=== PATIENT | female | born 1990 | race Caucasian/White ===

== ENCOUNTER → 2020-04-07 14:20 | Outpatient (BNVA) | payer MEDICAID, SELFPAY | PROVIDERS: Visit Provider Nurse Practitioner Women's Health | DX: Z01.419 Encounter for gynecological examination (general) (routine) without abnormal findings (principal); N76.0 Acute vaginitis; Z01.411 Encounter for gynecological examination (general) (routine) with abnormal findings; N72 Inflammatory disease of cervix uteri | CPT/HCPCS: 88175 ==

== ENCOUNTER 2020-06-18 10:04 | Emergency (ER) | payer MEDICAID, SELFPAY ==
[2020-06-18 10:26] VITALS: BP 133/86; PULSE 98; RESP 18; TEMP 36.9; O2SAT 100; BMI 33.5
--- NOTE | 2020-06-18 10:27 | ED_ITS ---
HPI - Extremity Problem General: Chief complaint: Extremity Problem,Nontraumatic Stated complaint: left side swollen from waist down Time Seen by Provider: 06/18/20 10:27 Source: patient Mode of arrival: wheelchair Limitations: no limitations History of Present Illness: HPI Narrative: Patient is a very nice 29-year-old female who presents to ED today with complaints of pain and swelling throughout her left lower extremity. Patient tells me a few days ago she began having pain in her left hip but noticed yesterday swelling from her groin distally. She tells me she cannot ambulate on the extremity secondary to the swelling and pain. She has not noticed any color or temperature changes to the extremity. No periods of prolonged inactivity. No recent surgeries. She was started on oral contraception 3 months ago. She has had no recent injury or trauma to the leg. MD Complaint: extremity pain and extremity swelling Location: left and lower extremity Relieving factors: nothing Exacerbating factors: walking Associated symptoms: Reports no associated symptoms; Deny chest pain, fever(s) or rash Review of Systems Const: Denies: fever(s), chills, body aches, fatigue or malaise Card: Denies: chest pain, palpitations, irregular heart rhythm, edema, lightheadedness, syncope, pre-syncope, dyspnea on exertion or orthopnea Resp: Denies: dyspnea, productive cough, non-productive cough, hemoptysis or chest congestion GI: Denies: nausea or vomiting Musc: Reports: extremity pain and extremity swelling; Denies: neck pain, back pain, joint pain, joint swelling, joint redness or joint warmth Skin/Breast: Denies: rash Neuro: Denies: headache(s), numbness in extremities, weakness in extremities, sensory changes, lack of coordination or dizziness [facility] ED PFSH: Medical History (Updated 06/18/20 @ 13:12 by IAIN Gordon) No pertinent past medical history Denies diabetes, asthma, hypertension, seizures, DVT/PE PMD: none-list provided on 06/08/2020 Surgical History Finger amputation, 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 H/O lumpectomy (2005) right breast--- fibroadenoma Family History Grandfather Diabetes Maternal grandfather Brother Hypertension Unknown Hyperlipidemia Maternal side Grandmother Family history of thyroid problem Paternal grandmother Denies family history of Colon cancer Ovarian cancer Heart disease Breast cancer Uterine cancer Stroke Social History (Updated 06/08/20 @ 12:36 by Brooke Smith MD) Additional social history: - Physical Exam Const: COMMON NORMALS: no acute distress, average body habitus, patient oriented x3, no limitations, healthy appearing, alert and well nourished Resp: COMMON NORMALS: normal respiratory effort and clear to auscultation bilaterally AUSCULTATION: clear to auscultation bilaterally Cardio: COMMON NORMALS: regular rate and regular rhythm RATE: regular rate RHYTHM: regular rhythm Extremity: GENERAL: Yes normal exam except as noted OTHER: pt has signif icant swelling from her L groin affecting her entire L LE; extremity is equal color and temp of R LE Neuro: COMMON NORMALS: patient oriented x3, moves all extremities, no focal motor deficits and no sensory deficits noted SENSORIUM/ORIENTATION: Yes alert GAIT: Yes Unable to assess gait Skin: COMMON NORMALS: no rashes or lesions noted GENERAL SKIN EXAM: no rashes or lesions noted Course Consultations: Consultation #1: Dr. Bird-recommends speaking with interventional cardiology for their input Consultation #2: Dr. Mcdowell-recommends 1 mg/kg Lovenox and placing pt on either Xarelo/Eliquis and he will follow up in office; recommends cessation of control pills; did not recommend any intervention or hospital admission at this time Vital Signs: Vital signs: Vital Signs Temperature 98.5 F 06/18/20 10:26 Pulse Rate 80 06/18/20 13:27 Respiratory Rate 14 06/18/20 13:27 Blood Pressure 129/79 06/18/20 13:27 Pulse Oximetry 97 06/18/20 13:27 MDM - Extremity (Nontraumatic) MDM Narrative: Medical decision making narrative: I have spoken interventional cardiology/vascular who recommended giving patient a dose of Lovenox and placing them on either Xarelto or Eliquis at this time. They did not recommend any further management or intervention at this time. Patient was given very strict precautions to return to the emergency department for the onset of chest pain, shortness of breath, difficulty breathing, exercise intolerance. Patient verbalizes understanding. Case management was able to get patient an appointment next week for follow-up. Lab Data: Labs: Lab Results 06/18/20 06/18/20 06/18/20 Range/Units 11:08 11:08 11:08 WBC 12.7 H (4.0-10.0) 10^3/ uL RBC 4.68 (4.1-5.3) 10^6/u L Hgb 13.4 (11.5-15.3) g/dL Hct 40.9 (37.0-47.0) % MCV 87.4 (81-99) fL MCH 28.6 (28.0-34.0) pg MCHC 32.8 (30.0-36.0) g/dL RDW 12.0 L (12.1-15.1) % Plt Count 313 (130-400) 10^3/c mm MPV 9.8 (7.4-10.4) fL Neut % (Auto) 76.9 % Lymph % (Auto) 16.2 % [place] % (Auto) 5.6 % Eos % (Auto) 0.5 % Baso % (Auto) 0.4 % Neut # (Auto) 9.75 H (1.8-7.7) 10^3/u L Lymph # (Auto) 2.1 (0.8-4.8) 10^3/u L [place] # (Auto) 0.7 (0.2-0.9) 10^3/u L Eos # (Auto) 0.1 (0.0-0.8) 10^3/u L Baso # (Auto) 0.1 (0.0-0.1) 10^3/u L Nucleated RBC % (a uto) 0 % Nucleated RBCs # 0.0 /100WBC PT 13.10 (12.1-14.9) SECO NDS INR 0.97 (0.8-1.2) APTT 28.7 (23.9-36.7) SECO NDS Sodium 134 L (136-145) mmol/L Potassium 4.0 (3.5-5.1) mmol/L Chloride 103 (98-107) mmol/L Carbon Dioxide 21 L (22-29) mmol/L Anion Gap 14.0 (5-19) BUN 12 (6-20) mg/dL Creatinine 0.9 (0.5-0.9) mg/dL GFR Calculation 74.0 L (90-130) mL/min Glucose 108 (65-115) mg/dL Calculated Osmolal ity 278 L (285-295) mOsm/k g Calcium 9.8 (8.5-10.5) mg/dL Total Bilirubin 0.2 (0.15-1.2) mg/dL AST 17 (0-32) U/L ALT 12 (0-33) U/L Alkaline Phosphata se 72 (35-105) IU/L Total Protein 8.0 (6.6-8.7) g/dL Albumin 4.4 (3.5-5.2) g/dL Globulin 3.6 (1.3-4.6) g/dL HCG, Qual (Negative) 06/18/20 Range/Units 11:08 WBC (4.0-10.0) 10^3/ uL RBC (4.1-5.3) 10^6/u L Hgb (11.5-15.3) g/dL Hct (37.0-47.0) % MCV (81-99) fL MCH (28.0-34.0) pg MCHC (30.0-36.0) g/dL RDW (12.1-15.1) % Plt Count (130-400) 10^3/c mm MPV (7.4-10.4) fL Neut % (Auto) % Lymph % (Auto) % [place] % (Auto) % Eos % (Auto) % Baso % (Auto) % Neut # (Auto) (1.8-7.7) 10^3/u L Lymph # (Auto) (0.8-4.8) 10^3/u L [place] # (Auto) (0.2-0.9) 10^3/u L Eos # (Auto) (0.0-0.8) 10^3/u L Baso # (Auto) (0.0-0.1) 10^3/u L Nucleated RBC % (a uto) % Nucleated RBCs # /100WBC PT (12.1-14.9) SECO NDS INR (0.8-1.2) APTT (23.9-36.7) SECO NDS Sodium (136-145) mmol/L Potassium (3.5-5.1) mmol/L Chloride (98-107) mmol/L Carbon Dioxide (22-29) mmol/L Anion Gap (5-19) BUN (6-20) mg/dL Creatinine (0.5-0.9) mg/dL GFR Calculation (90-130) mL/min Glucose (65-115) mg/dL Calculated Osmolal ity (285-295) mOsm/k g Calcium (8.5-10.5) mg/dL Total Bilirubin (0.15-1.2) mg/dL AST (0-32) U/L ALT (0-33) U/L Alkaline Phosphata se (35-105) IU/L Total Protein (6.6-8.7) g/dL Albumin (3.5-5.2) g/dL Globulin (1.3-4.6) g/dL HCG, Qual Negative (Negative) Imaging Data^: US L LE venous: Radiologist's impression: DVT noted left CFV through left FV through left popl iteal through left peroneal. This appears to be movable. Discharge Plan Discharge Patient Disposition: Home Clinical Impression: Acute deep vein thrombosis (DVT) of left lower extremity Qualifiers: Affected thrombotic vein of extremity: femoral Qualified Code(s): I82.412 - Acute embolism and thrombosis of left femoral vein Condition: Stable Prescriptions: New Xarelto DVT-PE Treat 30d Start 15 mg (42)- 20 mg (9) tablets,dose pack See Rx Instructions .ROUTE .COMPLEX Qty: 51 RF: 0 hydrocodone-acetaminophen 5-325 mg tablet 1 tab PO Q6H PRN (Reason: pain) Qty: 14 RF: 0 Discontinued levonorgestrel-ethinyl estrad [Levora-28] 0.15-0.03 mg tablet 1 tab PO DAILY Qty: 84 RF: 1 Discharge Orders: Discharge Order (Routine); Ordered 06/18/20 Ordered By: Carolyn Clayton Referrals: Juvenal Mcdowell MD [Physician] - Patient Instructions: Deep Venous Thrombosis (ED) Activity Restrictions/Additional Instructions: As discussed please stop taking your oral contraception pills. You need to use alternative forms of control to prevent . As discussed case management should be contacting you to set you up with your appointment with Dr. Mcdowell for follow-up of your left leg DVT. You need to return to the emergency department immediately for chest pain, shortness of breath, difficulty breathing, exercise intolerance, passing out episodes, coughing up blood, or any other concerns you may have. You need to fill your prescriptions immediately and start them. Discharge Date/Time: 06/18/20 13:28 Coding Level of Care Code ED Funeral Home Director for Chg Fwd Exam Detailed
--- NOTE | 2020-06-18 10:42 | USCV_ITS ---
Gely Frost Age: 29 Gender: F : 1990 Exam Date: 06/18/2020 10:40 Ordering Phys: Carolyn Clayton Technologist: Lady Cole [place] [facility] [place]: SUDDEN ONSET PAIN AND SWELLING LT LEG HISTORY: Sudden onset pain lt leg. Can not weight bear PROCEDURES: Venous duplex imaging was performed in only the left lower extremity. The following venous structures were evaluated: common femoral vein, profunda vein, proximal portion of the greater saphenous vein, superficial femoral vein, and the popliteal vein. In addition, the posterior tibial and peroneal trunk were evaluated. Serial compression, augmentation maneuvers, and spectral Doppler flow evaluation were performed. FINDINGS: DVT noted Lt CFV through Lt FV through Lt Pop through Lt Peroneal. This appears to be moveable. There are flashes of color flow but no compression or augmentation seen. Compresion noted Lt PTV and GSV. CONCLUSIONS Deep venous thrombosis of the left peroneal, popliteal, superficial femoral and common femoral veins. Dr. Leelee Chilel MD (Electronically Signed) Final Date: 18 June 2020 11:52 S
[2020-06-18 11:29] LABS: Basophils # 0.1 10^3/uL (0.0-0.1); Basophils % 0.4 %; Eosinophils # 0.1 10^3/uL (0.0-0.8); Eosinophils % 0.5 %; Hematocrit 40.9 % (37.0-47.0); Hemoglobin 13.4 g/dL (11.5-15.3); Lymphocytes # 2.1 10^3/uL (0.8-4.8); Lymphocytes % 16.2 %; Mean Corpuscular HGB Conc 32.8 g/dL (30.0-36.0); Mean Corpuscular Hemoglobin 28.6 pg (28.0-34.0); Mean Corpuscular Volume 87.4 fL (81-99); Mean Platelet Volume 9.8 fL (7.4-10.4); Monocytes # 0.7 10^3/uL (0.2-0.9); Monocytes % 5.6 %; Neutrophils # 9.75 10^3/uL (1.8-7.7); Neutrophils % 76.9 %; Nucleated Red Blood Cells % 0 %; Platelet Count 313 10^3/cmm (130-400); Red Blood Count 4.68 10^6/uL (4.1-5.3); White Blood Count 12.7 10^3/uL (4.0-10.0)
[2020-06-18 11:53] LABS: HCG, Serum Qual Negative (Negative)
[2020-06-18 11:57] LABS: INR 0.97 (0.8-1.2)
[2020-06-18 11:58] LABS: Partial Thromboplastin Time 28.7 SECONDS (23.9-36.7)
[2020-06-18 12:00] LABS: Alanine Aminotransferase 12 U/L (0-33); Albumin Level 4.4 g/dL (3.5-5.2); Alkaline Phosphatase 72 IU/L (35-105); Aspartate Amino Transferase 17 U/L (0-32); Blood Urea Nitrogen 12 mg/dL (6-20); Calcium 9.8 mg/dL (8.5-10.5); Carbon Dioxide 21 mmol/L (22-29); Chloride 103 mmol/L (98-107); Globulin 3.6 g/dL (1.3-4.6); Glucose 108 mg/dL (65-115); Osmolality Calculated 278 mOsm/kg (285-295); Sodium 134 mmol/L (136-145); Total Bilirubin 0.2 mg/dL (0.15-1.2)
[2020-06-18 12:04] VITALS: BP 121/98; PULSE 92; RESP 18; O2SAT 97
[2020-06-18 12:32] VITALS: BP 129/80; PULSE 73; O2SAT 98
[2020-06-18 13:02] VITALS: RESP 18; O2SAT 99
[2020-06-18] MEDS: morphine 4 mg/mL SDV 1 mL IM (13:02)
[2020-06-18] MEDS: ondansetron 2 mg/ML SDV 2 mL 4 MG IM (13:02)
[2020-06-18] MEDS: enoxaparin 80 mg/0.8 mL Syringe SUBCUT (13:06)
[2020-06-18 13:27] VITALS: BP 129/79; PULSE 80; RESP 14; O2SAT 97
--- NOTE | 2020-06-18 13:58 | DCPLANNER ---
health and wellness manager was asked to schedule a follow up appointment for patient with [facility]. health and wellness manager called [facility], spoke with Reba, gave clinic patients information. A follow up appointment was scheduled for , June 25, 2020 at 1:[address] House. health and wellness manager called patient with appointment information, patient stated that she would attend the appointment.
--- NOTE | 2020-07-10 17:43 | DCPLANNER ---
Patient had a follow up appointment scheduled for 06.25.20 with [facility] - patient did attend appointment.
== END 2020-06-18 13:28 | disposition home or self-care (01) ==
PROVIDERS: Emergency Provider Physician Assistant
DX: I82.412 Acute embolism and thrombosis of left femoral vein (principal)
CPT/HCPCS: 12345; 36415; 80053; 84703; 85025; 85610; 85730; 93971; 96372; 99281; 99283; E0114; J1650; J2270; J2405

== ENCOUNTER 2020-07-03 14:39 | Outpatient (CLI) | payer MEDICAID, SELFPAY ==
--- NOTE | 2020-07-03 15:00 | USCV_ITS ---
Gely Frost Age: 29 Gender: F : 1990 Exam Date: 07/03/2020 15:12 Ordering Phys: Irineo Steinberg M.D ([email or web address]) Technologist: Eric Wu [place]am [place] [facility] [place]ication: assess thrombus PROCEDURES: Comparison:. 06/18/20 Venous duplex imaging was performed in only the left lower extremity. The following venous structures were evaluated: common femoral vein, profunda vein, proximal portion of the greater saphenous vein, superficial femoral vein, and the popliteal vein. In addition, the posterior tibial and peroneal trunk were evaluated. Serial compression, augmentation maneuvers, and spectral Doppler flow evaluation were performed. FINDINGS: DVT is again noted in the left GSV adjacent to the CFV. Additional thrombus in the deep profunda and CFV. Impoved DVT SFV and popliteal vein. CONCLUSIONS Improved but persistent DVT left lower extremity. Report called by Everardo at time of exam. Dr. Shyla Lange DO (Electronically Signed) Final Date: 03 July 2020 16:05 S
== END 2020-07-03 14:40 | disposition home or self-care (01) ==
LOC: RAD 14:43
PROVIDERS: Visit Provider Internal Medicine
DX: O22.30 Deep phlebothrombosis in pregnancy, unspecified trimester (principal)
CPT/HCPCS: 93971

== ENCOUNTER 2020-07-06 08:16 | Outpatient (CLI) | payer MEDICAID, SELFPAY ==
--- NOTE | 2020-07-06 08:45 | USCV_ITS ---
Gely Frost Age: 29 Gender: F : 1990 Exam Date: 07/06/2020 08:35 Ordering Phys: Irineo Steinberg M.D ([email or web address]) Technologist: Tracey Alexander Exam Location: [facility] – [place] Indication: EVAL FOR COMPRESSION FROM THROMBUS Risk Factors: Previous Vascular Surgery: RIGHT LEFT BP: 115.0 / 79.00 BP: 105.0/ 64.00 0 0 Waveform Velocity (cm/s) Velocity (cm/s) Waveform Iliac Prox 143.2 Triphasic Iliac Mid 130.0 Triphasic Iliac Distal 107.0 Triphasic MEDICAL DOCTOR NUCLEAR MEDICINE 120.7 Triphasic SFA Prox 122.7 Triphasic SFA Mid 102.3 Triphasic SFA Dist 83.3 Triphasic POP 41.2 Triphasic APPLICATION SOFTWARE DEVELOPER 28.1 Biphasic DPA 22.6 Biphasic DARWIN 1.1 FINDINGS LT APPLICATION SOFTWARE DEVELOPER 120, LT DPA 130 Biphasic arterial Doppler waveforms in the posterior tibial and dorsalis pedis artery on the left side Normal resting DARWIN on the left side CONCLUSIONS 1. Normal resting DARWIN on the left side, suggesting no significant arterial obstruction. 2. Abnormal arterial Doppler waveform and infrapopliteal vessels, suggesting noncompliance Dr Alyse Jules MD [facility] (Electronically Signed) Final Date: 07 July 2020 08:33 S
== END 2020-07-06 08:17 | disposition home or self-care (01) ==
LOC: RAD 08:19
PROVIDERS: Visit Provider Internal Medicine
DX: I82.90 Acute embolism and thrombosis of unspecified vein (principal)
CPT/HCPCS: 93926

== ENCOUNTER 2020-10-20 13:49 | Outpatient (CLI) | payer MEDICAID, SELFPAY ==
--- NOTE | 2020-10-20 14:15 | USCV_ITS ---
Gely Frost Age: 30 Gender: F : 1990 Exam Date: 10/20/2020 12:55 Ordering Phys: Irineo Steinberg M.D ([email or web address]) Technologist: Adrian Olvera [place] [facility] [place]ication: HX OF LT LEG DVT HISTORY: History of deep venous thrombosis. PROCEDURES: Venous duplex imaging was performed in only the left lower extremity. The following venous structures were evaluated: common femoral vein, profunda vein, proximal portion of the greater saphenous vein, superficial femoral vein, and the popliteal vein. FINDINGS: Normal 2-D Doppler and augmentation and compressibility throughout the lower extremity venous structures. Additional imaging through the proximal calf veins also reveals no thrombus. Limited evaluation of the greater saphenous vein is patent with no thrombus. CONCLUSIONS No DVT left lower extremity. Dr. Shyla Lange DO (Electronically Signed) Final Date: 20 October 2020 14:32 S
== END 2020-10-20 13:50 | disposition home or self-care (01) ==
LOC: RAD 13:53
PROVIDERS: Visit Provider Internal Medicine
DX: M79.605 Pain in left leg (principal); Z86.718 Personal history of other venous thrombosis and embolism
CPT/HCPCS: 93971

== ENCOUNTER 2021-04-15 05:39 | Inpatient (IN) | payer MEDICAID, SELFPAY ==
[2021-04-15] VITALS (54 sets, daily range): BP systolic 76–146; BP diastolic 42–92; PULSE 66–115; RESP 16–18; TEMP 36.5–37.3; O2SAT 96–99; BMI 34.2
[2021-04-15] MEDS: lactated ringers 1,000 ML 999 ML IV ×2 (06:00→08:10)
[2021-04-15 06:21] LABS: Basophils # 0.1 10^3/uL (0.0-0.1); Basophils % 0.5 %; Eosinophils # 0.1 10^3/uL (0.0-0.8); Hematocrit 38.2 % (37.0-47.0); Hemoglobin 12.2 g/dL (11.5-15.3); Lymphocytes # 2.2 10^3/uL (0.8-4.8); Lymphocytes % 21.4 %; Mean Corpuscular HGB Conc 31.9 g/dL (30.0-36.0); Mean Corpuscular Hemoglobin 26.9 pg (28.0-34.0); Mean Corpuscular Volume 84.3 fL (81-99); Monocytes # 0.8 10^3/uL (0.2-0.9); Monocytes % 7.4 %; Neutrophils # 7.15 10^3/uL (1.8-7.7); Neutrophils % 69.1 %; Nucleated Red Blood Cells % 0 %; Platelet Count 317 10^3/cmm (130-400); Red Blood Count 4.53 10^6/uL (4.1-5.3); Red Cell Distribution Width 13.6 % (12.1-15.1); White Blood Count 10.3 10^3/uL (4.0-10.0)
--- NOTE | 2021-04-15 07:19 | ANES.PREANE2 ---
Pre-Anesthetic Assessment Pre-Anesthetic Assessment: Height/Weight: Height 1.52 m Temp Pulse Resp BP 97.7 F 76 18 130/65 04/15/21 06:13 04/15/21 07:03 04/15/21 06:00 04/15/21 07:03 Preop Diagnosis: labor Proposed Procedure: epidural Was Beta Lakesha taken within 24 hours: N/A Was Clonidine taken within 24 hours: N/A Last Intake: 20:00 Social: Social History: No alcohol and No tobacco Exam: Pre-Anes Outpt Exam: alert, oriented x 3, clear to auscultation bilaterally and regular rate & rhythm Airway: Submandibular: WNL Cervical ROM: WNL MP: 2 Dentition: Full Pulmonary: Pulmonary: None reported CV/HEM: CV/HEM: DVT (Left Jun 2020) : : None reported Hepatic: Hepatic: None reported GI: GI: GERD Metabolic: Metabolic: None reported Musc/skel: Musc/skel: None reported Neuropsych: Neuropsych: None reported Anesthetic Plan: ASA status: 2 Anesthesia: Regional (specify below) Meds/Allergies Current Medications: Current Medications Generic Name Dose Route Start Last Admin Trade Name Freq PRN Reason Stop Dose Admin Lactated Ringer's 1,000 mls @ 999 m ls/hr 04/15/21 05:55 04/15/21 06:00 Lactated Ringers IV 999 mls/hr .Q1H1M PRN Administration See label comment s PFSH Anesthesia PFSH: Medical History No pertinent past medical history Denies diabetes, asthma, hypertension, seizures, DVT/PE PMD: none-list provided on 06/08/2020 Surgical History Finger amputation, 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 H/O lumpectomy (2005) right breast--- fibroadenoma Family History Grandfather Diabetes Maternal grandfather Brother Hypertension Unknown Hyperlipidemia Maternal side Grandmother Family history of thyroid problem Paternal grandmother Denies family history of Colon cancer Ovarian cancer Heart disease Breast cancer Uterine cancer Stroke Social History Additional social history: - Data Anesthesia CBC & Chem 7: 04/15/21 05:50 Other Labs: Laboratory Results - last 48 hr 04/15/21 05:50 WBC 10.3 H RBC 4.53 Hgb 12.2 Hct 38.2 MCV 84.3 MCH 26.9 L MCHC 31.9 RDW 13.6 Plt Count 317 MPV 10.0 Neut % (Auto) 69.1 Lymph % (Auto) 21.4 [place] % (Auto) 7.4 Eos % (Auto) 1.0 Baso % (Auto) 0.5 Neut # (Auto) 7.15 Lymph # (Auto) 2.2 [place] # (Auto) 0.8 Eos # (Auto) 0.1 Baso # (Auto) 0.1 Nucleated RBC % (auto) 0 Nucleated RBCs # 0.0 Cardiac Studies: No Data to Display
--- NOTE | 2021-04-15 07:21 | PC.NURSE ---
Aanesthesia called for epidural placement. [id number] no answer [phone] no answer [phone] no answer [phone] called and talked with Ninfa. She stated she would notify anesthesia and have them come for epidural.
--- NOTE | 2021-04-15 07:32 | P.HPUD_ITS ---
Labor & Delivery H&P Update Date of Procedure: April 15, 2021 Date H&P Performed: 04/09/21 H&P update information: I have reviewed H&P completed within last 30 days and I have examined patient prior to procedure Changes to previous documentation: Patient arrived to [facility] labor and delivery after beginning contractions around 3 AM. She is approximately 5 cm on admission to the hospital in active labor. Admission Diagnosis: Preop diagnosis: labor Primary indication for procedure: Term in active labor. She is 38 weeks 4 days gestation. Planned procedure: Spontaneous vaginal delivery and tubal ligation.
--- NOTE | 2021-04-15 07:52 | ANES.PROC ---
Anesthesia Procedures Procedure/Date: 04/15/21 Epidural: Time Out Performed: Yes Consents Signed: Procedure Consent Consent: requested by attending/covering physician, from patient, risks and benefits reviewed and patient agrees to proceed Lumbar Level: L3-L4 Epidural position: sitting Epidural procedure: sterile prep of area (betadine), 1% lidocaine to numb the area (3ml), 18 g needle, neg for paresthesia, test dose given, 1.5% xylocaine 1:200k epi (5ml), 0.2% Ropivacaine bolus ml (5ml), placed PCEA, no systemic response, sterile dressing applied, L.U.D. no apparent complications and 0.2% Ropiavacaine @ mls/hr (10ml/hr)
--- NOTE | 2021-04-15 11:01 | P.PCNOB_ITS ---
Delivery Note: Date of delivery: April 15, 2021 this 30-year-old 3 now para 3 female at 39 weeks and 5 days gestation had spontaneous onset of labor at home about 3 AM today. She was admitted to the hospital and given epidural anesthesia after she was 5 cm on arrival. She slowly dilated throughout the morning with spontaneous rupture membranes around 10 AM. Once complete she dilated to completion with dilatation and delivered by spontaneous vaginal livery healthy, viable female infant at 10:34 AM. The delivered at right occiput anterior position with mouth and nose suctioned at the perineum. Shoulders were transverse and required rotation for the delivery of the remainder of the which was done without problems. The infant was then suctioned again prior to placing the on mother's abdomen. After approximately 1 minute the umbilical cord was clamped and then cut by the infant's father. The placenta delivered spontaneously at 10:46 AM. There was no nuchal cord and the cord had 3 blood vessels. Infant Apgars were 8 and 9 at 1 and 5 minutes respectively. Examination of the perineum and vaginal area demonstrated no lacerations and there was no episiotomy. Epidural anesthesia was used as stated above. Exploration of the vaginal vault with fundal massage demonstrated a firm uterus with minimal clots which were removed. The weighed 7 pounds 15 ounces. There was no complication with delivery and estimated blood loss approximately 123 mL. Pre-Delivery Course: This patient was followed throughout the course by this physician. There were no complications or problems throughout her . Maternal blood type was O- with antibody screen negative. She did receive RhoGam at 28 weeks gestation. She had spontaneous onset of labor. Group B strep was negative and Covid testing had not been completed prior to delivery. She did desire tubal ligation and signed proper forms but with no Covid testing that will not be completed during this hospital stay. Delivery: Spontaneous vaginal delivery. Post-Delivery Status: Patient is doing well and will be followed for routine care. We will plan tubal ligation at 6 weeks . A&P Assessment and plan (1) Normal spontaneous vaginal delivery: Continue routine care and adjust orders as necessary. Plan probable discharge tomorrow. Status: Acute Coding Level of Care Code Acute Sales Assistant Entertainment And Media for Jinny Garcia Diagnoses Normal spontaneous vaginal delivery O80
[2021-04-15] MEDS: oxytocin 30 UNIT/500 ML BAG 999 UNIT IV (11:39)
[2021-04-15] MEDS: ibuprofen 800 mg tablet PO ×2 (16:53→20:47)
[2021-04-15] MEDS: docusate sodium 100 mg Capsule PO (16:53)
[2021-04-15 23:01] LABS: Hematocrit 33.4 % (37.0-47.0); Hemoglobin 10.9 g/dL (11.5-15.3); Mean Corpuscular HGB Conc 32.6 g/dL (30.0-36.0); Mean Corpuscular Hemoglobin 27.5 pg (28.0-34.0); Mean Corpuscular Volume 84.3 fL (81-99); Platelet Count 300 10^3/cmm (130-400); Red Blood Count 3.96 10^6/uL (4.1-5.3); Red Cell Distribution Width 13.5 % (12.1-15.1); White Blood Count 16.6 10^3/uL (4.0-10.0)
[2021-04-15] MEDS: HYDROcodone-acetaminophen 5-325 mg Tablet PO (23:54)
[2021-04-16] VITALS: BP 130/76; PULSE 63; RESP 16; O2SAT 100
[2021-04-16 04:23] VITALS: BP 110/57; PULSE 66; RESP 16; O2SAT 98
--- NOTE | 2021-04-16 07:18 | P.DS_ITS ---
Discharge Providers NURSE PRACTITIONER PHYSICIAN ASSISTANT Date of Admission: 04/15/21 05:39 Date of Discharge: 04/16/21 Attending Provider at Admission: Isidoro Rogel MD Attending Provider at Discharge: Isidoro Rogel MD Diagnoses at Discharge Discharge Diagnosis (1) Normal spontaneous vaginal delivery: Status: Acute Reason for Visit Reason for Visit: Contractions Hospital Course Hospital Course Patient arrived early yesterday morning in active labor. She dilated throughout the morning and delivered by spontaneous vaginal livery healthy, viable female . There were no problems with the labor and delivery process. The patient has done well since delivery with just mild lochia and no significant clots or cramping. She is bottlefeeding the and the is feeding well. She had no episiotomy or laceration with repair. She is ambulating well and tolerating a regular diet and is felt to be stable for discharge. Information Peripartum Data: Delivery Method: Vaginal Physical Exam Const: COMMON NORMALS: no acute distress and healthy appearing GENERAL APPEARANCE: cooperative Resp: COMMON NORMALS: normal respiratory effort, No retractions and No use of accessory muscles GI: COMMON NORMALS: Normal to inspection, nondistended, normoactive bowel sounds present and Soft to palpation (Fundus is firm and well below the umbilicus.) PALPATION: Yes Soft to palpation (Fundus is firm and well below the umbilicus.) Extremity: COMMON NORMALS: normal to inspection, full ROM, no calf tenderness and no pedal edema Neuro: COMMON NORMALS: moves all extremities, no focal motor deficits and no sensory deficits noted Urinary Catheter Management^: Marlow: Cath Placed During This Visit: yes Urinary Catheter Date of Insertion: 04/15/21 Urinary Catheter Time of Insertion: 08:15 Discharge Data Data Completed and Pending: Pending at discharge Category Date Time Status Complete Crossmat ch Routine Lab 04/15/21 05:50 Results Rho D Immune Glob ulin Routine Lab 04/15/21 05:50 Results Type and Screen R outine Lab 04/15/21 05:50 Results Labs from last 24 hours 04/15/21 04/15/21 04/15/21 22:35 22:35 05:50 WBC 16.6 H RBC 3.96 L Hgb 10.9 L Hct 33.4 L MCV 84.3 MCH 27.5 L MCHC 32.6 RDW 13.5 Plt Count 300 MPV 10.0 Blood Type O Negative Rho(D) Type Negative / 0 Antibody Screen Negative Screen Negative Vitals: Last Vital Signs Temp 98.4 F 04/15/21 16:55 Pulse 66 04/16/21 04:23 Resp 16 04/16/21 04:23 BP 110/57 04/16/21 04:23 Pulse Ox 98 04/16/21 04:23 Discharge Plan Discharge Patient Disposition: Home Condition: Stable Prescriptions: New docusate sodium 100 mg Capsule 100 mg PO BID Qty: 60 RF: 1 ibuprofen 800 mg Tablet 800 mg PO TID Qty: 90 RF: 2 Continued prenat.vits,cristobal,[id number] Tablet 1 tab PO DAILY RF: 0 Discharge Orders: Discharge Order (Routine); Ordered 04/16/21 Ordered By: Isidoro Rogel Referrals: Isidoro Rogel MD [Physician] - 6 Weeks Discharge Diet: Usual diet Discharge Activity: Resume usual activity Patient Instructions: Opioid Safety Discharge Attestations NURSE PRACTITIONER PHYSICIAN ASSISTANT Time Spent in Discharge Care*: less than 30 min Specific Discharge Activities: Specific discharge activities: educating patient, documenting/other paperwork and evaluating patient/reviewing data Coding Level of Care Code Acute Dental Equipment Installer And Servicer for Chg Fwd Diagnoses Normal spontaneous vaginal delivery O80
--- NOTE | 2021-04-16 07:23 | ANE.PACU2 ---
Inpatient post-anesthesia follow up: Airway intact: Yes Vital signs: Temperature 98.4 F Pulse Rate 66 Respiratory Rate 16 Blood Pressure 110/57 Pulse Oximetry 98 Oxygen Delivery Me thod Room Air Oxygen Flow Rate Fraction of Inspir ed Oxygen Hydration adequate: Yes Nausea and vomiting: No Pain level: 2 Mental status: Baseline
[2021-04-16] MEDS: prenatal vitamin Capsule 1 CAP PO (10:02)
[2021-04-16] MEDS: ibuprofen 800 mg tablet PO (10:02)
[2021-04-16 10:08] VITALS: BP 118/79; PULSE 86; RESP 16; TEMP 36.4; O2SAT 100
[2021-04-16 11:00] VITALS: BP 118/79; PULSE 86; RESP 16; TEMP 36.4; O2SAT 100
== END 2021-04-16 11:10 | disposition home or self-care (01) | DRG 807 ==
LOC: OPOB 05:45 → OBGYN 05:45
PROVIDERS: Admitting Provider Family Medicine; Visit Provider Family Medicine
DX: O80 Encounter for full-term uncomplicated delivery (principal); Z37.0 Single live birth; Z3A.39 39 weeks gestation of pregnancy
CPT/HCPCS: 36430; 51702; 59025; 59409; 85025; 85027; 85460; 86850; 86900; 90384; 99211; J2795

== ENCOUNTER → 2022-07-14 09:17 | Outpatient (BNVA) | payer MEDICAID, SELFPAY | PROVIDERS: Visit Provider Obstetrics & Gynecology | DX: Z01.419 Encounter for gynecological examination (general) (routine) without abnormal findings (principal) | CPT/HCPCS: 87624 ==

== ENCOUNTER → 2022-09-28 09:25 | Outpatient (BNVA) | payer MEDICAID, SELFPAY | PROVIDERS: Visit Provider Obstetrics & Gynecology | DX: R87.619 Unspecified abnormal cytological findings in specimens from cervix uteri (principal); N89.8 Other specified noninflammatory disorders of vagina | CPT/HCPCS: 81025; 87070; 87205; 88305 ==

== ENCOUNTER 2022-12-29 13:14 | Day surgery (SDC) | payer MEDICAID, SELFPAY ==
[2022-12-29 13:43] VITALS: BMI 31.0
--- NOTE | 2022-12-29 13:46 | PM.OBGYHP ---
Providers/Chief Complaint Admitting Physician: Riley Colvin M.D. Primary EMERGENCY VEHICLE TECHNICIAN: Riley Colvin M.D. Chief Complaint: vaginal pain HPI EMERGENCY VEHICLE TECHNICIAN History of Present Illness Gely Frost is a 32 year old female with h/o [place]'s gland cyst, c/o one day history of pain, swelling, unable to sit without discomfort. no fever, chills, n, vomiting Present Details Date of Last Menstrual Period: 12/17/22 Calculated Date of Delivery: 09/23/23 Gestational Age Based on Last Menstrual Period: 1 Medications/Allergies Home Medications Medication Instructions Recorded Confirmed Last Taken Type ibuprofen 800 mg tablet 800 mg PO TID #90 tabs 04/16/21 12/29/22 11/23/22 Rx Allergies Allergy/AdvReac Type Severity Reaction Status Date / Time adhesive Allergy ALGY-Rash Verified 12/29/22 11:00 PFS EMERGENCY VEHICLE TECHNICIAN PFSH: Medical History (Updated 10/06/22 @ 09:05 by Elen Cheema MD) No pertinent past medical history Denies diabetes, asthma, hypertension, seizures, DVT/PE PMD: none-list provided on 06/08/2020 Surgical History Finger amputation, 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 H/O lumpectomy (2005) right breast--- fibroadenoma Family History Grandfather Diabetes Maternal grandfather Brother Hypertension Unknown Hyperlipidemia Maternal side Grandmother Family history of thyroid problem Paternal grandmother Denies family history of Colon cancer Ovarian cancer Heart disease Breast cancer Uterine cancer Stroke Social History Smoking and tobacco status: never smoked Additional social history: - History History History 2 Term 2 0 Miscarriages/Ectopic 0 Living Children 2 Vitals/I&O/Wt Weight last 48 hrs Weight 159 lb Physical Exam Narrative: Lungs: clear Cor: RRR Abd: soft, nontender Vulva: normal Vagina: 2 cm right [place] duct abscess A&P Assessment and plan (1) [place]'s gland abscess: plan incision, drainage and possible packing of right [place] gland abscess procedure and risks explained to patient, including risks of infection, bleeding, urethral injury, anestheisa, blood transfusions patient understands and wants to proceed Attestations Medical Necessity Statement*: patient with [place]'s duct abscess, pain and discomfort, now for incision and drainage Coding Level of Care Code Acute Code for Chg Fwd Diagnoses [place]'s gland abscess N34.0 Time Spent (min) 60
--- NOTE | 2022-12-29 13:50 | P.HP_ITS ---
Same Day Surgery H&P Indication for Procedure/HPI DATE OF PROCEDURE: December 29, 2022 CHIEF COMPLAINT/INDICATIONFOR SURGICAL PROCEDURE: vaginal pain PREOP DIAGNOSIS: [place] abscess PLANNED PROCEDURE: Operation Date: 12/29/22 15:10 Proposed Procedures p Incision, drainage, and packing of abcess 85626 N34.0(Not Applicable) - Riley Colvin MD Medications/Allergies* Allergies/Adverse Reactions Allergy/AdvReac Type Severity Reaction Status Date / Time adhesive Allergy ALGY-Rash Verified 12/29/22 11:00 Pertinent History/Comorbid Conditions* Medical History (Updated 10/06/22 @ 09:05 by Elen Cheema MD) No pertinent past medical history Denies diabetes, asthma, hypertension, seizures, DVT/PE PMD: none-list provided on 06/08/2020 Surgical History (Updated 06/08/20 @ 12:36 by Brooke Smith MD) Finger amputation, 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 H/O lumpectomy (2005) right breast--- fibroadenoma Family History (Updated 04/07/20 @ 13:11 by Nancy Pitts LPN) Diabetes Grandfather Maternal grandfather Hyperlipidemia Unknown Maternal side Family history of thyroid problem Grandmother Paternal grandmother Hypertension Brother Denies family history of Colon cancer Ovarian cancer Heart disease Breast cancer Uterine cancer Stroke Social History Smoking and tobacco status: never smoked Additional social history: - Pertinent Exam Findings alert, oriented x 3, clear to auscultation bilaterally, regular rate & rhythm and procedure specific exam findings Vagina: 2 cm right [place]'s abscess, tender to palpation Recommendations Surgery/Procedure today Coding Level of Care Code Acute Code for Chg Fwd Diagnoses Time Spent (min) 30
[2022-12-29 14:07] LABS: OR HCG Qualitative Urine Negative (Negative)
[2022-12-29] MEDS: sodium chloride 0.9% 1,000 ML 30 ML IV (14:36)
--- NOTE | 2022-12-29 14:47 | ANES.PREANE2 ---
Pre-Anesthetic Assessment Height/Weight: Height 1.52 m Weight 72.121 kg O2 Del Method Room Air 12/29/22 13:51 Preop Diagnosis: [place]'s abscess Operation Date: 12/29/22 15:10 Proposed Procedures p Incision, drainage, and packing of abcess 16758 N34.0(Not Applicable) - Riley Colvin MD Familial anesthetic complications: none Was Beta Lakesha taken within 24 hours: N/A Was Clonidine taken within 24 hours: N/A Last intake: Intake Last Liquid Date 12/29/22 Last Liquid Time 08:00 Last Solid Date 12/28/22 Last Solid Time 19:00 Social No alcohol and No tobacco Exam alert, oriented x 3, clear to auscultation bilaterally and regular rate & rhythm Airway Submandibular: within normal limits Cervical ROM: within normal limits Mallampati: Class II Dentition: full History/ROS No significant history except as noted Anesthetic Plan ASA status: 1 Anesthesia: General Medications/Allergies Home Medications Medication Instructions Recorded Confirmed Last Taken Type ibuprofen 800 mg tablet 800 mg PO TID #90 tabs 04/16/21 12/29/22 11/23/22 Rx Allergies Allergy/AdvReac Type Severity Reaction Status Date / Time adhesive Allergy ALGY-Rash Verified 12/29/22 11:00 Iodinated Contrast Media Allergy ALGY-Hives Verified 12/29/22 14:00 Current Medications Generic Name Dose Route Start Last Admin Trade Name Freq PRN Reason Stop Dose Admin Sodium Chloride 1,000 mls @ 30 mls/hr 12/29/22 14:00 12/29/22 14:36 Sodium Chloride 0.9% IV 12/30/22 13:59 30 mls/hr .Q24H DAVID Administration PFSH Anesthesia Medical History (Updated 10/06/22 @ 09:05 by Elen Cheema MD) No pertinent past medical history Denies diabetes, asthma, hypertension, seizures, DVT/PE PMD: none-list provided on 06/08/2020 Surgical History Finger amputation, 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 H/O lumpectomy (2005) right breast--- fibroadenoma Family History Grandfather Diabetes Maternal grandfather Brother Hypertension Unknown Hyperlipidemia Maternal side Grandmother Family history of thyroid problem Paternal grandmother Denies family history of Colon cancer Ovarian cancer Heart disease Breast cancer Uterine cancer Stroke Social History Smoking and tobacco status: never smoked Additional social history: - Female Reproductive History Date of last menstrual period: 12/17/22 Data Anesthesia Cardiac Studies: No Data to Display
[2022-12-29] MEDS: ceFAZolin 2,000 MG in sodium chloride 0.9% (plus) 50 ML 100 MG IV (15:00)
[2022-12-29 15:45] VITALS: BP 129/68; PULSE 100; RESP 19; TEMP 36.1; O2SAT 96
[2022-12-29 15:50] VITALS: BP 109/87; PULSE 102; RESP 22; O2SAT 96
[2022-12-29 16:02] VITALS: BP 121/88; PULSE 82; RESP 16; TEMP 36.6; O2SAT 98
[2022-12-29 16:25] VITALS: BP 124/96; PULSE 82; RESP 16; TEMP 36.6; O2SAT 98
--- NOTE | 2022-12-29 16:31 | ANE.PACU2 ---
Inpatient post-anesthesia follow up: Airway intact: Yes Vital signs: Temperature 97.8 F Pulse Rate 82 Respiratory Rate 16 Blood Pressure 121/88 Pulse Oximetry 98 Oxygen Delivery Me thod Room Air Oxygen Flow Rate Fraction of Inspir ed Oxygen Hydration adequate: Yes Nausea and vomiting: No Pain level: 2 Mental status: Baseline
--- NOTE | 2022-12-30 15:49 | PM.OP ---
Operative Report Date of procedure: December 29, 2022 Pre-op diagnosis: Preop Diagnosis [place]'s abscess Post-op diagnosis: Right [place] abscess Post-op findings: 2 cm Right [place] abscess with pus Procedure done: incision, drainage and packing of Right [place] abscess Cultures of purulent material from Right [place] abscess Surgeon: Riley Colvin M.D. Estimated blood loss (mL): 0 Complications: none Findings: 2 cm Right [place]'s abscess with pus Brief History: 32 y.o. 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 The patient was taken to the OR and placed on table. Mask anesthesia was given. Patient was then placed in dorsolithotomy position. The perineum was prepped and draped in the usual sterile fashion. A 2 cm fluctuant right [place]'s abscess was identified. A Marlow catheter was placed to better define the position of the urethra in relation to the abscess. A 0.5-1 cm incision was made on the surface of the abscess. Immediately, pus and purulent materila was obtained. Cultures done. The abscess cavity was explored and cleared. Betadine, 20 cc, was used to irrgate the abscess cavity. A 0.25-inch iodoform was then used to pack the abscess cavity. No bleeding was seen. The patient was then placed supine, awakened, and taken to the RR in good condition. Postoperative condition: good Blood loss: 0 cc Complications: none Sponge and instrument counts correct x two
== END 2022-12-29 16:45 | disposition home or self-care (01) ==
PROVIDERS: Anesthesiology; Visit Provider Obstetrics & Gynecology
PROC: (CPT 53060; principal; 2022-12-29 15:00)
DX: N34.0 Urethral abscess (principal); B96.89 Other specified bacterial agents as the cause of diseases classified elsewhere
CPT/HCPCS: 53060; 84703; 87070; 87075; 87077; 87205; J0690; J2405; J2704; J3010; J7030

== ENCOUNTER → 2023-04-12 13:40 | Outpatient (BNVA) | payer MEDICAID, SELFPAY | PROVIDERS: Visit Provider Obstetrics & Gynecology | DX: A63.0 Anogenital (venereal) warts (principal); B97.7 Papillomavirus as the cause of diseases classified elsewhere | CPT/HCPCS: 87624 ==

== ENCOUNTER 2023-04-20 05:44 | Day surgery (SDC) | payer MEDICAID, SELFPAY ==
[2023-04-19 11:04] VITALS: BMI 32.2
--- NOTE | 2023-04-19 22:36 | PM.OBGYHP ---
Providers/Chief Complaint Admitting Physician: Riley Colvin MD Primary CONFERENCE CENTER COORDINATOR: Riley Colvin MD Primary Care Provider: Philomena Meredith DO Chief Complaint: 38866 Z30.2 HPI CONFERENCE CENTER COORDINATOR History of Present Illness 32 y.o.? desires permanent sterilization now scheduled for laparoscopic bilateral partial salpingectomy Present Details Date of Last Menstrual Period: 04/01/23 Calculated Date of Delivery: 01/06/24 Gestational Age Based on Last Menstrual Period: 2 Medications/Allergies Home Medications Medication Instructions Recorded Confirmed Last Taken Type oxybutynin chloride 10 mg 10 mg PO DAILY #30 tabs 04/12/23 04/19/23 04/19/23 Rx tablet,extended release 24 hr (Ditropan XL) Allergies Allergy/AdvReac Type Severity Reaction Status Date / Time adhesive Allergy ALGY-Rash Verified 04/12/23 09:28 Iodinated Contrast Media Allergy ALGY-Hives Verified 04/12/23 09:28 PFSH CONFERENCE CENTER COORDINATOR PFSH: Medical History (Updated 04/17/23 @ 23:38 by Riley Colivn MD) No pertinent past medical history Denies diabetes, asthma, hypertension, seizures, DVT/PE PMD: none-list provided on 06/08/2020 Surgical History Finger amputation, 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 158? lbs;? 5? Comfortable HEENT:? normal Lungs:? clear Cor:? RRR Abd:? soft, nontender A&P Assessment and plan (1) Contraceptive management: patient desires permanent sterilization does not want reversible control understands irreversibility of procedure procedure and risks explained to patient, including risks of infection, bleeding, injury to internal organs, anesthesia, blood transfusions patient understands and wants to proceed plan laparoscopic bilateral partial salpingectomy Qualifiers: Contraceptive encounter type: other encounter for contraceptive management Qualified Code(s): Z30.8 - Encounter for other contraceptive management Attestations Medical Necessity Statement*: patient desires permanent sterilization, now for laparoscopic bilateral partial salpingectomy Coding Level of Care Code Acute Code for Chg Fwd Diagnoses Contraceptive management Z30.8 Contraceptive encounter type: other encounter for contraceptive management Time Spent (min) 30
[2023-04-20] VITALS (12 sets, daily range): BP systolic 106–128; BP diastolic 42–86; PULSE 56–80; RESP 16–19; TEMP 36.2–36.7; O2SAT 98–100
[2023-04-20] MEDS: sodium chloride 0.9% 1,000 ML 30 ML IV (06:15)
[2023-04-20] MEDS: scopolamine 1.5 Patch 1 PATCH TRANSDERMA (06:18)
[2023-04-20] MEDS: famotidine 20 mg/2 mL INJ IVP (06:19)
[2023-04-20 06:32] LABS: OR HCG Qualitative Urine Negative (Negative)
--- NOTE | 2023-04-20 06:40 | W.PM.OPSUD ---
Surgery/Procedure H&P Update DATE OF PROCEDURE: April 20, 2023 DATE H&P PERFORMED: 04/19/23 H&P UPDATE INFORMATION: I have reviewed H&P completed within last 30 days, I have examined patient prior to procedure and No changes to prior documentation PREOP DIAGNOSIS: desires permanent sterilization PLANNED PROCEDURE: Operation Date: 04/20/23 07:00 Proposed Procedures p Laparoscopic bilateral partial salpingectomy 04212,Z30.2(Bilateral) - Riley Colvin MD
--- NOTE | 2023-04-20 07:01 | ANES.PREANE2 ---
Pre-Anesthetic Assessment Height/Weight: Height 1.52 m Weight 74.843 kg Temp Pulse Resp BP Pulse Ox O2 Del Method 98.1 F 80 16 128/86 100 Room Air 04/20/23 05:49 04/20/23 05:49 04/20/23 05:49 04/20/23 05:49 04/20/23 05:49 04/20/23 06:08 Preop Diagnosis: desires permanent sterilization Operation Date: 04/20/23 07:00 Proposed Procedures p Laparoscopic bilateral partial salpingectomy 90814,Z30.2(Bilateral) - Riley Colvin MD Familial anesthetic complications: none Was Beta [place]ha taken within 24 hours: N/A Was Clonidine taken within 24 hours: N/A Last intake: Intake Last Liquid Date 04/19/23 Last Liquid Time 20:00 Last Solid Date 04/19/23 Last Solid Time 20:00 Social No alcohol and No tobacco Exam alert, oriented x 3, clear to auscultation bilaterally and regular rate & rhythm Airway Submandibular: within normal limits Cervical ROM: within normal limits Mallampati: Class II Dentition: full History/ROS No significant history except as noted Anesthetic Plan ASA status: 1 Anesthesia: General Medications/Allergies Home Medications Medication Instructions Recorded Confirmed Last Taken Type oxybutynin chloride 10 mg 10 mg PO DAILY #30 tabs 04/12/23 04/19/23 04/19/23 Rx tablet,extended release 24 hr (Ditropan XL) Allergies Allergy/AdvReac Type Severity Reaction Status Date / Time adhesive Allergy ALGY-Rash Verified 04/20/23 06:01 Iodinated Contrast Media Allergy ALGY-Hives Verified 04/20/23 06:01 Current Medications Generic Name Dose Route Start Last Admin Trade Name Freq PRN Reason Stop Dose Admin Sodium Chloride 1,000 mls @ 30 mls/hr 04/20/23 06:00 04/20/23 06:15 Sodium Chloride 0.9% IV 04/21/23 05:59 30 mls/hr .Q24H DAVID Administration PFSH Anesthesia Medical History (Updated 04/17/23 @ 23:38 by Riley Colvin MD) No pertinent past medical history Denies diabetes, asthma, hypertension, seizures, DVT/PE PMD: none-list provided on 06/08/2020 Surgical History Finger amputation, 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
--- NOTE | 2023-04-20 08:13 | PC.NURSE ---
Pt awake, oral airway removed, pt tolerated well.
[2023-04-20] MEDS: fentaNYL 50 mcg/mL INJ 2mL IVP (08:20)
[2023-04-20] MEDS: HYDROcodone-acetaminophen 5-325 mg Tablet 1 TAB PO (09:10)
--- NOTE | 2023-04-20 15:05 | ANE.PACU2 ---
Inpatient post-anesthesia follow up: Airway intact: Yes Vital signs: Temperature 97.6 F Pulse Rate 56 Respiratory Rate 16 Blood Pressure 120/70 Pulse Oximetry 99 Oxygen Delivery Me thod Room Air Oxygen Flow Rate 6 Fraction of Inspir ed Oxygen Hydration adequate: Yes Nausea and vomiting: No Pain level: 3 Mental status: Baseline
--- NOTE | 2023-04-20 19:56 | P.OP_ITS ---
Operative Report Date of procedure: April 20, 2023 Pre-op diagnosis: Preop Diagnosis desires permanent sterilization Post-op diagnosis: same Post-op findings: normal uterus, tubes, and ovaries normal pelvis Procedure done: laparoscopic bilateral partial salpingectomy Specimens removed/disposition: bilateral partial fallopian tube segments Surgeon: Riley Colvin MD Anesthesia: General Estimated blood loss (mL): 10 Complications: none Brief History: 32 y.o. desires permanent sterilization Procedure: Informed consent was obtained. The patient was taken to the OR and placed on the table. General endotracheal anesthesia was induced. The patient was then placed in dorsolithotomy position. The abdomen and perineum were then prepped and draped in the usual fashion. A 5 mm subumbilical skin incision was made. A 5 mm trocar with sheath was then inserted into the peritoneal cavity under direct visualization with the laparoscope. After confirming intraperitoneal position, pneumoperitoneum was achieved. Two separate 5 mm incisions were made in the right and left mid- quadrants. 5 mm trocars with sheaths were then inserted into the peritoneal cavity under direct visualization with the laparoscope. The right fallopian tube was then identified to its fimbrial end. Starting at the fimbrial end, the mesosalpinx was then coagulated and cut using the Endoseal. A 3-4 cm portion of the right fallopian tube was excised and removed via one of the ports. This was sent to pathology. There was no bleeding seen. Similarly, the left fallopian tube was identified to its fimbrial end. A 3-4 cm portion of the left fallopian tube was excised and removed, sent to pathology. There was no bleeding. All instruments were then removed from the peritoneal cavity after the pneumoperitoneum was allowed to escape. The skin incisions were closed using 3- O chromic in subcuticular fashion. Dermabond was applied. The patient was then placed supine and awakened, taken the the PACU in good condition.
== END 2023-04-20 09:20 | disposition home or self-care (01) ==
PROVIDERS: PCP Family Medicine; Visit Provider Obstetrics & Gynecology
PROC: (CPT 58661; principal; 2023-04-20 07:00)
DX: Z30.2 Encounter for sterilization (principal)
CPT/HCPCS: 58661; 81025; 84703; 88302; J1100; J1200; J1885; J2250; J2371; J2405; J2704; J2710; J3010; J3490; J7030

== ENCOUNTER → 2024-05-22 15:20 | Outpatient (BNVA) | payer MEDICAID, SELFPAY | PROVIDERS: PCP Family Medicine; Visit Provider Obstetrics & Gynecology | DX: Z01.419 Encounter for gynecological examination (general) (routine) without abnormal findings (principal) | CPT/HCPCS: 87624 ==

== ENCOUNTER 2024-07-25 07:28 | Day surgery (SDC) | payer MEDICAID, SELFPAY ==
[2024-07-25] VITALS (8 sets, daily range): BP systolic 115–126; BP diastolic 56–92; PULSE 69–87; RESP 16; TEMP 36.3; O2SAT 95–99; BMI 31.8
--- NOTE | 2024-07-25 02:30 | W.PM.OPSFHP ---
Same Day Surgery H&P Indication for Procedure/HPI DATE OF PROCEDURE: July 25, 2024 CHIEF COMPLAINT/INDICATIONFOR SURGICAL PROCEDURE: abnormal pap, atypical glandular cells of endocervical origin PREOP DIAGNOSIS: abnormal pap PLANNED PROCEDURE: Operation Date: 07/25/24 09:15 Proposed Procedures p Hysteroscopy Hysteroscopy w/ Endometrial Sampling 51447, 23242, N87.0, B97.9(Not Applicable) - Riley Colvin MD s Possible endometrial Poylpectomy(Not Applicable) - Riley Colvin MD s Cervical Conization(Not Applicable) - Riley Colvin MD 33 y.o. with abnormal pap - atypical glandular cells of endocervical origin Medications/Allergies* Home Medications Medication Instructions Recorded Confirmed Type No Known Home Medications 07/24/24 07/24/24 History Allergies/Adverse Reactions Allergy/AdvReac Type Severity Reaction Status Date / Time adhesive Allergy ALGY-Rash Verified 05/22/24 11:41 Iodinated Contrast Media Allergy ALGY-Hives Verified 05/22/24 11:41 Pertinent History/Comorbid Conditions* Medical History (Updated 06/12/24 @ 23:21 by Riley Colvin MD) No pertinent past medical history Denies diabetes, asthma, hypertension, seizures, DVT/PE PMD: none-list provided on 06/08/2020 Surgical History (Updated 06/08/20 @ 12:36 by Brooke Smith MD) H/O lumpectomy (2005) right breast--- fibroadenoma Finger amputation, 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 Family History (Updated 04/07/20 @ 13:11 by Nancy Pitts LPN) Diabetes Grandfather Maternal grandfather Hyperlipidemia Unknown Maternal side Family history of thyroid problem Grandmother Paternal grandmother Hypertension Brother Denies family history of Colon cancer Ovarian cancer Heart disease Breast cancer Uterine cancer Stroke Social History Smoking and tobacco/nicotine status: never used tobacco/nicotine Pertinent Exam Findings alert, oriented x 3, clear to auscultation bilaterally and regular rate & rhythm Recommendations Surgery/Procedure today Coding Level of Care Code Acute Code for Chg Fwd Time Spent (min) 20
[2024-07-25 08:01] LABS: OR HCG Qualitative Urine Negative (Negative)
[2024-07-25] MEDS: sodium chloride 0.9% 1,000 ML 30 ML IV (08:37)
--- NOTE | 2024-07-25 08:56 | W.PM.OPSUD ---
Surgery/Procedure H&P Update DATE OF PROCEDURE: July 25, 2024 DATE H&P PERFORMED: 07/25/24 H&P UPDATE INFORMATION: I have reviewed H&P completed within last 30 days, I have examined patient prior to procedure and No changes to prior documentation PREOP DIAGNOSIS: abnormal pap PLANNED PROCEDURE: Operation Date: 07/25/24 09:15 Proposed Procedures p Hysteroscopy Hysteroscopy w/ Endometrial Sampling 55671, 26849, N87.0, B97.9(Not Applicable) - Riley Colvin MD s Possible endometrial Poylpectomy(Not Applicable) - Riley Colvin MD s Cervical Conization(Not Applicable) - Riley Colvin MD
--- NOTE | 2024-07-25 09:02 | ANES.PREANE2 ---
Pre-Anesthetic Assessment Height/Weight: Height 1.52 m Weight 73.936 kg O2 Del Method Room Air 07/25/24 08:04 Preop Diagnosis: abnormal pap Operation Date: 07/25/24 09:15 Proposed Procedures p Hysteroscopy Hysteroscopy w/ Endometrial Sampling 03215, 62893, N87.0, B97.9(Not Applicable) - Riley Colvin MD s Possible endometrial Poylpectomy(Not Applicable) - Riley Colvin MD s Cervical Conization(Not Applicable) - Riley Colvin MD Familial anesthetic complications: None Was Beta Lakesha taken within 24 hours: N/A Was Clonidine taken within 24 hours: N/A Last intake: Intake Last Liquid Date 07/24/24 Last Liquid Time 20:00 Last Solid Date 07/24/24 Last Solid Time 22:00 Social No alcohol and No tobacco Exam alert, oriented x 3, clear to auscultation bilaterally and regular rate & rhythm Airway Mallampati: Class I Dentition: full CV/HEM Deep Vein Thrombosis (-induced) Anesthetic Plan ASA status: 2 Anesthesia: General Risk of > 500 ml blood loss (7ml/kg in children): No Medications/Allergies Home Medications Medication Instructions Recorded Confirmed Last Taken Type No Known Home Medications 07/24/24 07/24/24 Unknown History Allergies Allergy/AdvReac Type Severity Reaction Status Date / Time adhesive Allergy ALGY-Rash Verified 05/22/24 11:41 Iodinated Contrast Media Allergy ALGY-Hives Verified 05/22/24 11:41 Current Medications Generic Name Dose Route Start Last Admin Trade Name Freq PRN Reason Stop Dose Admin Sodium Chloride 1,000 mls @ 30 mls/hr 07/25/24 07:45 07/25/24 08:37 Sodium Chloride 0.9% IV 07/26/24 07:44 30 mls/hr .Q24H DAVID Administration PFSH Anesthesia Medical History No pertinent past medical history Denies diabetes, asthma, hypertension, seizures, DVT/PE PMD: none-list provided on 06/08/2020 Surgical History H/O lumpectomy (2005) right breast--- fibroadenoma Finger amputation, 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 Family History Grandfather Diabetes Maternal grandfather Brother Hypertension Unknown Hyperlipidemia Maternal side Grandmother Family history of thyroid problem Paternal grandmother Denies family history of Colon cancer Ovarian cancer Heart disease Breast cancer Uterine cancer Stroke Social History Smoking and tobacco/nicotine status: never used tobacco/nicotine Female Reproductive History Date of last menstrual period: 07/20/24 Data Anesthesia Cardiac Studies: No Data to Display
[2024-07-25] MEDS: vasopressin 20 unit/mL INJ 10 UNIT INJECTION (10:01)
--- NOTE | 2024-07-25 10:40 | P.OP_ITS ---
Operative Report Date of procedure: July 25, 2024 Pre-op diagnosis: abnormal pap - atypical glandular cells Post-op diagnosis: same Post-op findings: uterus sounded to 8 cm Endometrial cavity normal Minimal endometrial tissue No polyps or fibroids Normal cervix Procedure done: hysteroscopy Curettage of uterus Electrosurgical loop excision of the cervix Implants: none Specimens removed/disposition: endometrial curettings cervical tissue Surgeon: Riley Colvin MD Anesthesia: MAC Estimated blood loss (mL): 5 Complications: none Findings: uterus sounded to 8 cm Endometrial cavity normal Minimal endometrial tissue No polyps or fibroids Normal cervix Brief History: 33 y.o. with abnormal pap - atypical glandular cells Procedure: Informed consent signed. Patient was taken to the operating room. Anesthesia was induced. Patient was placed in dorsolithotomy position, prepped and draped for hysteroscopy. A bivalve speculum was placed in the vagina. The anterior lip of the cervix was grasped with a sharp-toothed tenaculum. The cervix was serially dilated with Hegar dilators. A hysteroscope was placed into the endometrial cavity. The endometrial cavity was seen to be normal. There were no polyps or fibroids. There was small amount of endometrial tissue. The hysteroscope was then removed. Endometrial curettage was done with a sharp curette. Endometrial tissue was sent to pathology. The cervix was then infiltrated at the cervicovaginal junction with 20 U of vasopressin to decrease bleeding. Electrosurgical loop excision of the cervix w as done to a depth of approximately 5 mm. No bleeding was seen. Excellent hemostasis was noted. All instruments were then removed. The patient was placed supine, awakened, and taken to the recovery room. Postoperative condition: stable EBL: 5 cc Complications: none Sponge and instrument counts were correct x two
[2024-07-25] MEDS: ibuprofen 800 mg tablet PO (11:10)
--- NOTE | 2024-07-25 11:30 | SUR.PHASEII ---
Patient rated cramps at 5/10, medicated patient with 800mg ibuprofen. Patient ready to go home and d/c at 1129.
--- NOTE | 2024-07-25 11:30 | ANE.PACU2 ---
Inpatient post-anesthesia follow up: Airway intact: Yes Vital signs: Temperature 97.4 F Pulse Rate 78 Respiratory Rate 16 Blood Pressure 118/71 Pulse Oximetry 98 Oxygen Delivery Me thod Room Air Oxygen Flow Rate Fraction of Inspir ed Oxygen Hydration adequate: Yes Nausea and vomiting: No Pain level: 1 Mental status: Baseline
== END 2024-07-25 11:29 | disposition home or self-care (01) ==
PROVIDERS: Anesthesiology; PCP Family Medicine; Visit Provider Obstetrics & Gynecology
PROC: 0UJD8ZZ Inspection of Uterus and Cervix, Via Natural or Artificial Opening Endoscopic (ICD-10-PCS; CPT 58555; principal; 2024-07-25 09:15)
PROC: 0UBC7ZZ Excision of Cervix, Via Natural or Artificial Opening (ICD-10-PCS; CPT 57520; 2024-07-25 09:15)
DX: R89.6 Abnormal cytological findings in specimens from other organs, systems and tissues (principal); N72 Inflammatory disease of cervix uteri; Z86.718 Personal history of other venous thrombosis and embolism
CPT/HCPCS: 57522; 58558; 81025; 88305; 88307; J1100; J1200; J2250; J2405; J2704; J2710; J3010; J3490; J7030